=== PATIENT | female | born 2005 | race Two or more races ===

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

== ENCOUNTER 2025-03-24 00:31 | Emergency (ER) | payer MEDICAID ==
[~2025-03-24] VITALS: Ht 157.5 cm; Wt 67.4 kg
[2025-03-24] MEDS ORDERED: KETOROLAC TROMETH 60MG/2ML VIAL IM ONE (00:45)
[2025-03-24 00:53] LABS: Basophils # (auto) 0 10 ^3/uL (0-0.2); Basophils % (auto) 0.6 % (0.0-2.0); Eosinophils # (auto) 0 10 ^3/uL (0-0.8); Eosinophils % (auto) 0.9 % (0.0-7.0); Hematocrit 37.5 % (36.0-46.0); Hemoglobin 12.9 g/dL (12.2-16.2); Lymphocytes # (auto) 1.8 10 ^3/uL (0.4-5.4); Lymphocytes % (auto) 32.5 % (10.0-50.0); Mean Corpuscular Hemoglobin 29.3 pg (28.0-32.0); Mean Corpuscular Hgb Conc. 34.3 g/dL (32.0-36.0); Mean Corpuscular Volume 85.4 fL (80.0-100.0); Monocytes # (auto) 0.3 10 ^3/uL (0-1.3); Monocytes % (auto) 5.4 % (0.0-12.0); Neutrophils # (auto) 3.4 10 ^3/uL (1.6-8.6); Neutrophils % (auto) 60.6 % (37.0-80.0); Platelet Count (auto) 268 10^3/uL (140-450); Red Blood Cells 4.39 10^6/uL (4.0-5.20); Red Cell Distribution Width 13.7 % (11.8-14.3); White Blood Cell 5.6 10^3/uL (4.4-10.8)
[2025-03-24 01:01] LABS: Chloride 104 mmol/L (98-107); Sodium 142 mmol/L (136-145)
[2025-03-24 01:02] LABS: Anion Gap 10 (5-15); Calcium 9.1 mg/dL (8.7-10.4); Carbon Dioxide 28 mmol/L (20-31)
[2025-03-24 01:07] LABS: BUN/Creatinine Ratio 12.1 (10.0-20.0); Glucose 84 mg/dL (74-106)
[2025-03-24 01:09] LABS: Blood Urea Nitrogen 8 mg/dL (9-23); Potassium 3.4 mmol/L (3.5-5.1)
[2025-03-24 01:54] LABS: Urine Bacteria None Seen /hpf (None Seen)
--- NOTE | 2025-03-24 01:55 | ED.PDOC ---
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 Patient unsure if she is . For the past week she has been having vaginal bleeding, became profuse yesterday accompanied by clots. Noted also suprapubic abdominal pain, dizziness and nausea. Patient states she never had this kind of vaginal bleeding before. Chief Complaint: Vaginal Bleed Time Seen by MD: 01:54 Reviewed Notes: Nurses Notes Allergies: Coded Allergies: NO KNOWN ALLERGIES (Unverified , 07/05/19) Home Meds Active Scripts Ondansetron Odt 4MG Tab (ZOFRAN PO) 4 Mg Tb, 4 MG PO TIDPRN PRN for 3 Days, #9 TAB ODT TAB-DISSOLVE IN MOUTH, THEN SWALLOW Prov:KATI REED MD 03/24/25 Acetaminophen (Acetaminophen Er) 650 Mg Tab, 650 MG PO TIDPRN PRN for 5 Days, #15 TAB Prov:KATI REED MD 03/24/25 Information Source: Patient Mode of Arrival: Ambulatory Timing: Days Severity: Moderate Vaginal Discharge: None Vaginal Lesions: None Bleeding Quality: Bright Red, Clotted Onset Of Mass/Bleeding: Spontaneous Sexual Activity: Sexually Active Last Consensual [place]: Unknown Control: None Associated Signs and Symptoms: Vaginal Bleeding, Abdominal Pain, N/V Review of Systems REVIEW OF SYSTEMS: No fever, no chills, or fatigue HEENT: No sore throat, no earache, no congestion, no neck pain. Cardiac: No chest pain. No palpitations. Lungs: No shortness of breath, no cough. GI: No nausea, no vomiting, no diarrhea, no constipation, (+) abdominal pain : No dysuria, frequency, or urgency. No hematuria. (+) vaginal bleeding Musculoskeletal: No joint pain , no joint swelling, no extremity edema. Skin: No rash, no itching. Neuro: No headache, no dizziness, no weakness Vital Signs Vital Signs Date Time Temp Pulse Resp B/P (MAP) Pulse Ox O2 Delivery O2 Flow Rate FiO2 03/24/25 05:31 97.9 74 18 107/68 (81) 100 97.9 03/24/25 05:31 Room Air* 0 21 Physical Exam General: Awake, alert and oriented. No acute distress. Skin: Skin in warm, dry and intact. Appropriate color for ethnicity. Nailbeds p ink with no cyanosis. HEENT: The head is normocephalic and atraumatic. Conjunctivae are clear without exudates or hemorrhage. Sclera is non-icteric. EOM are intact. No signs of nystagmus. Eyelids are normal in appearance without swelling or lesions. Oral mucosa is pink and moist Neck: The neck is supple with normal range of motion. No JVD. Cardiac: Heart rate and rhythm are normal. No murmurs, gallops, or rubs are auscultated. Respiratory: No signs of respiratory distress. Lung sounds are clear in all lobes bilaterally without rales, rhonchi, or wheezes. Abdominal: Abdomen is soft, right upper quadrant tenderness, super quadrant tenderness without guarding or rigidity or distention. Bowel sounds are present and normoactive in all four quadrants. : Deferred Extremities: Upper and lower extremities are atraumatic in appearance without deformity or edema. Neurological: The patient is awake, alert and oriented to person, place, and time with normal speech. Speech is clear. There is no facial asymmetry. Psychiatric: Appropriate mood and affect. Good judgement and insight. 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 Was a procedure done?: No Differential Diagnosis (MOLDING PROCESS TECHNICIAN) Vaginal Bleeding: - Inevitable, - Missed, - Threatened, Blood Loss Anemia, Ectopic , Hormonal, Menorrhagia, Menometrorrhagia, Menstrual Bleeding, UTI, Other X-Ray, Labs, Meds, VS Vital Signs Date Time Temp Pulse Resp B/P (MAP) Pulse Ox O2 Delivery O2 Flow Rate FiO2 03/24/25 05:31 97.9 74 18 107/68 (81) 100 97.9 03/24/25 05:31 74 18 100 Room Air* 0 21 03/24/25 01:20 98.7 78 18 131/82 (98) 98 98.7 Lab Test 03/24/25 01:20 03/24/25 00:40 Range/Units Urine Color Colorless Yellow Urine Clarity Clear Clear Urine pH 6.5 5.0-9.0 Urine Specific [place] 1.007 1.001-1.035 Urine Protein Negative Negative Urine Ketones Negative Negative Urine Blood 3+ H Negative /uL Urine Nitrite Negative Negative Urine Bilirubin Negative Negative Urine Urobilinogen Normal Negative mg/dL Urine Leukocyte Esterase Negative Negative /uL Urine RBC 158 0 - 4 /hpf Urine Microscopic WBC 1 0-5 /HPF Urine Squamous Epithelial Cells Few <5 /hpf Urine Bacteria None seen None Seen /hpf Urine Glucose Normal Normal mg/dL Urine Test Negative Negative Chlamydia trachomatis (TIMO) Pending Neisseria gonorrhoeae (TIMO) Pending White Blood Count 5.6 4.4-10.8 10^3/uL Red Blood Count 4.39 4.0-5.20 10^6/uL Hemoglobin 12.9 12.2-16.2 g/dL Hematocrit 37.5 36.0-46.0 % Mean Corpuscular Volume 85.4 80.0-100.0 fL Mean Corpuscular Hemoglobin 29.3 28.0-32.0 pg Mean Corpuscular Hemoglobin Concent 34.3 32.0-36.0 g/dL Red Cell Distribution Width 13.7 11.8-14.3 % Platelet Count 268 140-450 10^3/uL Mean Platelet Volume 9.1 6.9-10.8 fL Neutrophils (%) (Auto) 60.6 37.0-80.0 % Lymphocytes (%) (Auto) 32.5 10.0-50.0 % Monocytes (%) (Auto) 5.4 0.0-12.0 % Eosinophils (%) (Auto) 0.9 0.0-7.0 % Basophils (%) (Auto) 0.6 0.0-2.0 % Neutrophils # (Auto) 3.4 1.6-8.6 10 ^3/uL Lymphocytes # (Auto) 1.8 0.4-5.4 10 ^3/uL Monocytes # (Auto) 0.3 0-1.3 10 ^3/uL Eosinophils # (Auto) 0 0-0.8 10 ^3/uL Basophils # (Auto) 0 0-0.2 10 ^3/uL Nucleated Red Blood Cells 0.0 % Sodium Level 142 136-145 mmol/L Potassium Level 3.4 L 3.5-5.1 mmol/L Chloride Level 104 98-107 mmol/L Carbon Dioxide Level 28 20-31 mmol/L Anion Gap 10 5-15 Blood Urea Nitrogen 8 L 9-23 mg/dL Creatinine 0.66 0.550-1.02 mg/dL Glomerular Filtration Rate Calc 129 >90 mL/min BUN/Creatinine Ratio 12.1 10.0-20.0 Serum Glucose 84 74-106 mg/dL Calcium Level 9.1 8.7-10.4 mg/dL Beta HCG, Quantitative 0.8 L 1.5-4.2 mIU/mL Time of 1ST Reevaluation: 01:46 Reevaluation 1ST: Unchanged Patient Education/Counseling: Need For Follow Up Family Education/Counseling: Need For Follow Up Departure 1 Departure Time of Disposition: 04:57 Impression: Primary Impression: Menorrhagia Additional Impression: Uterine fibroid Disposition: 01 HOME / SELF CARE / HOMELESS Condition: Stable Additional Instructions: ED DISCHARGE INSTRUCTIONS Instructions: Please read all instructions provided in this packet carefully. Although you have been discharged from the Emergency Department, this does not mean that you have a "clean bill of health". No definitive diagnosis for your symptoms has been made today. It is possible that you are in the process of developing a serious illness. This is why you must return to the ED without fail if any new or worsening symptoms (especially if your symptoms include chest pain, trouble breathing, abdominal pain, fever, headache, confusion, trouble seeing, or trouble walking) It is also very important that you see a primary care doctor within the next 3-5 days to follow up. A copy of your ultrasound results are included below. If you are unable to get an appointment, return to the ED for re-evaluation. Abnormal Uterine Bleeding: Care Instructions Overview Abnormal uterine bleeding is irregular bleeding from the uterus. It may be bleeding that is heavier, renal nurse, or lasts longer than your usual period. Or it may be bleeding that doesn't occur at your regular time. Sometimes it is caused by changes in hormone levels. It can also be caused by growths in the uterus, such as fibroids or polyps. Sometimes a cause cannot be found. You may have bleeding when you are not expecting your period. Your doctor may suggest a test. Follow-up care is a alejandra part of your treatment and safety. Be sure to make and go to all appointments, and call your doctor if you are having problems. It's also a good idea to know your test results and keep a list of the medicines you take. How can you care for yourself at home? Be safe with medicines. Take pain medicines exactly as directed. If the doctor gave you a prescription medicine for pain, take it as prescribed. If you are not taking a prescription pain medicine, ask your doctor if you can take an [id number] medicine. You may be low in iron because of blood loss. Eat a balanced diet that is high in iron and vitamin C. Foods rich in iron include red meat, shellfish, eggs, beans, and leafy green vegetables. Talk to your doctor about whether you need to take iron pills or a multivitamin. When should you call for help? Call 911 anytime you think you may need emergency care. For example, call if: You passed out (lost consciousness). Call your doctor now or seek immediate medical care if: You have new or worse belly or pelvic pain. You have severe vaginal bleeding. You feel dizzy or lightheaded, or you feel like you may faint. Watch closely for changes in your health, and be sure to contact your doctor if: You think you may be . Your bleeding gets worse. You do not get better as expected. Credits for Abnormal Uterine Bleeding: Care Instructions Current as of: March 15, 2024 Author: [employer] Staff Clinical Review Board All [employer] education is reviewed by a team that includes physicians, nurses, advanced practitioners, registered dieticians, and other healthcare professionals. Uterine Fibroids: Care Instructions Overview Uterine fibroids are growths in the uterus. Fibroids aren't cancer. Doctors don't know what causes fibroids. But they are more common as you age, especially from your 30s and 40s and through menopause. After menopause, fibroids often shrink and go away. Fibroids can grow on the outer wall, on the inner wall, or inside the wall of the uterus. They can cause painful cramps and heavy periods. In these cases, an intrauterine device (IUD) can help decrease symptoms. It can also help to take anti-inflammatory medicines or hormone control. Sometimes surgery is needed to treat fibroids. But if you are near menopause, you may want to wait and see if your symptoms get better. Follow-up care is a alejandra part of your treatment and safety. Be sure to make and go to all appointments, and call your doctor if you are having problems. It's also a good idea to know your test results and keep a list of the medicines you take. How can you care for yourself at home? If your doctor gave you medicine, take it as exactly as prescribed. Be safe with medicines. Call your doctor if you think you are having a problem with your medicine. Take anti-inflammatory medicines for pain. These include ibuprofen and naproxen. Read and follow all instructions on the label. Use heat, such as a hot water bottle or a heating pad set on low, or a warm bath to relax tense muscles and relieve cramping. Put a thin cloth between the heating pad and your skin. Never go to sleep with a heating pad on. Lie down and put a pillow under your knees. Or lie on your side and bring your knees up to your chest. These positions may help relieve belly pain or pressure. Keep track of how many sanitary pads or tampons you use each day. Get at least 30 minutes of exercise on most days of the week. Walking is a good choice. You also may want to do other activities, such as running, swimming, cycling, or playing tennis or team sports. If you bleed longer than usual or have heavy bleeding, take a daily multivitamin with iron. When should you call for help? Call your doctor now or seek immediate medical care if: You have severe vaginal bleeding. You have new or worse belly or pelvic pain. Watch closely for changes in your health, and be sure to contact your doctor if: You have unusual vaginal bleeding. You do not get better as expected. Credits for Uterine Fibroids: Care Instructions Current as of: March 15, 2024 Author: [employer] Staff Clinical Review Board All [employer] education is reviewed by a team that includes physicians, nurses, advanced practitioners, registered dieticians, and other healthcare professionals. PATIENT: MEJIA BOLIVAR ACCT: [id number] UNIT: [id number] : 2005 LOC: ER ROOM / BED: / AGE / SEX: 19 / F ADM STATUS: REG ER SERVICE 0000 ORDERING PHYSICIAN: KATI REED MD PROCEDURE(s): PELTR - TRANSVAGINAL US NON OB REASON: PELVIC PAIN ORDER NUMBER(s): [id number], ACCESSION NUMBER(s): [id number] INDICATION: Pelvic Pain TECHNIQUE: Multiple real-time grayscale transabdominal and transvaginal sonographic images along with color and duplex Doppler of the uterus and ovaries were obtained. COMPARISON: None FINDINGS: The uterus measures 6.3 x 3.8 x 3.2 cm. The endometrial stripe measures 0.8 cm. Heterogeneous uterus with possible fibroids measuring up to 1.5 cm. Cervical nabothian cyst measures 0.8 cm. Right ovary measures 6.0 x 2.8 x 2.0 cm with normal Doppler color flow Left ovary measures 3.3 x 3.2 x 1.5 cm with normal Doppler color flow Bilateral ovarian follicles are present. IMPRESSION: Probable fibroid uterus. Nonspecific asymmetric enlargement of the right ovary. Otherwise, no acute finding. ATED BY: KEL BACK MD DICTATED DATE/TIME: 03/24/25447 SIGNED BY: KEL BACK MD SIGNED DATE/TIME: 03/24/25447 CC: PATIENT: MEJIA BOLIVAR ACCT: [id number] UNIT: [id number] : 2005 LOC: ER ROOM / BED: / AGE / SEX: 19 / F ADM STATUS: REG ER SERVICE [id number] ORDERING PHYSICIAN: KATI REED MD PROCEDURE(s): PELUS - PELVIC REASON: Pelvic Pain ORDER NUMBER(s): [id number], ACCESSION NUMBER(s): [id number] INDICATION: Pelvic Pain TECHNIQUE: Multiple real-time grayscale transabdominal and transvaginal sonographic images along with color and duplex Doppler of the uterus and ovaries were obtained. COMPARISON: None FINDINGS: The uterus measures 6.3 x 3.8 x 3.2 cm. The endometrial stripe dennis ures 0.8 cm. Heterogeneous uterus with possible fibroids measuring up to 1.5 cm. Cervical nabothian cyst measures 0.8 cm. Right ovary measures 6.0 x 2.8 x 2.0 cm with normal Doppler color flow Left ovary measures 3.3 x 3.2 x 1.5 cm with normal Doppler color flow Bilateral ovarian follicles are present. IMPRESSION: Probable fibroid uterus. Nonspecific asymmetric enlargement of the right ovary. Otherwise, no acute finding. ATED BY: KEL BACK MD DICTATED DATE/TIME: 03/24/25447 SIGNED BY: KEL BACK MD SIGNED DATE/TIME: 03/24/25447 CC: e-Prescriptions Ondansetron Odt 4MG Tab (ZOFRAN PO) 4 Mg Tb 4 MG PO TIDPRN PRN for 3 Days, #9 TAB ODT TAB-DISSOLVE IN MOUTH, THEN SWALLOW Prov: KATI REED MD 03/24/25 Acetaminophen (Acetaminophen Er) 650 Mg Tab 650 MG PO TIDPRN PRN for 5 Days, #15 TAB Prov: KATI REED MD 03/24/25 Comments 19-year-old female with heavy bleeding near the end of menstrual cycle. Patient's H and normal limits. Vital signs within normal limits. Ultrasound shows uterine fibroid. 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 Patient advised to return to the emergency department with any new worsening or concerning symptoms. - I reviewed the following notes from the pt's past medical encounters: N/A The following tests were ordered, and results were reviewed by me: (See di agnostic results section) The following test were independently interpreted by me: N/A Additional information was gathered from interviewing the following independent historians: N/A I reviewed and agreed with the following test results read by other providers: N/A I discussed treatments and results with patient Decision regarding hospitalization or escalation of hospital level of care: Risks and benefits of admission for further treatment of patient's condition was considered however due to patient's stable condition patient will be discharged to follow up closely or return to care for worsening of condition or inability to follow up. Critical Care Note Critical Care Time?: No Stability Stability form required: No Heart Score Heart Score: Heart Score Response (Comments) Value History N/A 0 EKG N/A 0 Age N/A 0 Risk Factors N/A 0 Troponin N/A 0 Total 0 I personally scribed for KATI REED MD ([email or web address]) on 03/24/25 at 01:55. Electronically submitted by Rod Edwards (General Specific). I personally scribed for KATI REED MD ([email or web address]) on 03/24/25 at 01:56. Electronically submitted by Rod Edwards (General Specific). KATI REED MD March 24, 2025 01:55
[2025-03-24 02:10] LABS: Urine Blood 3+ /uL (Negative); Urine Clarity Clear (Clear); Urine Color Colorless (Yellow); Urine Protein, UAD Negative (Negative); Urine Specific Gravity 1.007 (1.001-1.035); Urine Squamous Epithelial Cell FEW /hpf (<5); Urine Urobilinogen Normal (Negative); Urine WBC 1 /HPF (0-5); Urine pH 6.5 (5.0-9.0)
--- NOTE | 2025-03-24 04:50 | DVH ---
INDICATION: Pelvic Pain TECHNIQUE: Multiple real-time grayscale transabdominal and transvaginal sonographic images along with color and duplex Doppler of the uterus and ovaries were obtained. COMPARISON: None FINDINGS: The uterus measures 6.3 x 3.8 x 3.2 cm. The endometrial stripe measures 0.8 cm. Heterogeneo us uterus with possible fibroids measuring up to 1.5 cm. Cervical nabothian cyst measures 0.8 cm. Right ovary measures 6.0 x 2.8 x 2.0 cm with normal Doppler color flow Left ovary measures 3.3 x 3.2 x 1.5 cm with normal Doppler color flow Bilateral ovarian follicles are present. IMPRESSION: Probable fibroid uterus. Nonspecific asymmetric enlargement of the right ovary. Otherwise, no acute finding.
[2025-03-24] MEDS ORDERED: ZOFR4T PO (05:00)
[2025-03-24] MEDS ORDERED: ACET650T12 PO (05:00)
[2025-03-24 05:31] VITALS: BP 107/68; PULSE 74; RESP 18; TEMP 97.9; O2SAT 100
[2025-03-26 04:06] LABS: Chlamydia Trachomatis, NAA Negative (Negative); Neisseria gonorrhoeae, NAA Negative (Negative)
== END 2025-03-24 05:36 | disposition home or self-care (01) ==
LOC: ER 00:31
DX: N92.0 Excessive and frequent menstruation with regular cycle (principal); R10.2 Pelvic and perineal pain; D25.9 Leiomyoma of uterus, unspecified; Z79.899 Other long term (current) drug therapy
CPT/HCPCS: 36415; 76830; 76856; 80048; 81001; 81025; 84702; 85025; 96372